=== PATIENT | male | born 1945 | race Caucasian/White ===

== ENCOUNTER 2021-05-12 15:58 | Emergency (ER) | payer OTHER ==
[~2021-05-12] VITALS: Ht 175.3 cm; Wt 104.3 kg
[2021-05-12] MEDS ORDERED: OXYC5 PO (16:56)
== END 2021-05-12 17:36 | disposition home or self-care (01) ==
LOC: ER 15:58
DX: S46.912A Strain of unspecified muscle, fascia and tendon at shoulder and upper arm level, left arm, initial encounter (principal); S46.911A Strain of unspecified muscle, fascia and tendon at shoulder and upper arm level, right arm, initial encounter; V49.9XXA Car occupant (driver) (passenger) injured in unspecified traffic accident, initial encounter
CPT/HCPCS: 99283; A9270

== ENCOUNTER 2022-11-29 18:31 | Inpatient (IN) | payer OTHER ==
[~2022-11-29] VITALS: Ht 177.8 cm; Wt 90.5 kg
[~2022-11-29 18:31] MED LIST: OXYC5 PO
--- NOTE | 2022-11-29 19:55 | NUR ---
ADMIT RECEIVED FROM [facility] [facility] AT THIS TIME. PT IS AWAKE AND ALERT. ORIENTED AND COOPERATIVE WITH CARE. IRRITABLE AT TIMES. DENIED C/O CHEST PAIN AT THIS TIME. CONTINUES WITH C/O BACK PAIN FROM RECENT SURGERY. DYSPNEA NOTED WITH EXERTION, INCLUDING WITH TALKING. O2 4L NC ON- SATS STABLE. RESPIRATIONS EVEN AND UNLABORED AT REST. PT IS ABLE TO REPOSITION SELF IN BED. HEPARIN INFUSING AT 18UNITS/KG/HR (28.8MLs/HR) WITH A DOSING WEIGHT OF 80KG. SEE ADMIT ASSESSMENT FOR FULL ASSESSMENT.
[2022-11-29 20:07] VITALS: BP 146/120
[2022-11-29 20:15] VITALS: BP 138/98
[2022-11-29 22:00] VITALS: BP 144/77
[2022-11-29 22:32] LABS: BASOPHILS ABSOLUTE AUTO 0.05 K/mm3 (0.00-0.23); BASOPHILS PERCENT AUTO 1 % (0-2); EOSINOPHILS PERCENT AUTO 3 % (0-6); Hematocrit 36.7 % (37.0-53.0); Hemoglobin 12.7 g/dL (13.5-17.5); IMMATURE GRAN ABSOLUTE AUTO 0.07 K/mm3 (0.00-0.10); IMMATURE GRAN PERCENT AUTO 1 % (0-1); LYMPHOCYTES ABSOLUTE AUTO 1.26 K/mm3 (0.84-5.20); LYMPHOCYTES PERCENT AUTO 13 % (21-46); MONOCYTES ABSOLUTE AUTO 0.89 K/mm3 (0.16-1.47); MONOCYTES PERCENT AUTO 9 % (4-13); Mean Corpuscular HGB 32.5 pg (26.0-34.0); Mean Corpuscular HGB Conc 34.6 g/dL (31.5-36.5); Mean Corpuscular Volume 94 fL (80-100); Mean Platelet Volume 11.2 fL (9.1-12.4); NEUTROPHILS ABSOLUTE AUTO 7.07 K/mm3 (1.96-9.15); NEUTROPHILS PERCENT AUTO 73 % (41-73); Platelet Count 176 K/mm3 (150-400); RDW Coefficient Variation 13.1 % (11.7-14.2); RDW Standard Deviation 42.9 fL (35.1-46.3); Red Blood Cell Count 3.91 M/mm3 (4.30-5.90); White Blood Cell Count 9.64 K/mm3 (4.00-11.30)
[2022-11-29 22:44] LABS: Albumin, Blood 2.9 g/dL (3.4-5.0); Albumin/Globulin Ratio 0.8 (0.8-1.8); Bilirubin, Total 0.4 mg/dL (0.1-1.0); Bun/Creatinine Ratio 14.5 (12.0-20.0); Calcium, Blood 8.6 mg/dL (8.5-10.1); Creatinine, Blood 1.45 mg/dL (0.60-1.20); Globulin, Blood 3.8 g/dL (2.2-4.0); Potassium, Blood 3.7 mmol/L (3.5-5.5); Total Protein, Blood 6.7 g/dL (6.4-8.2)
[2022-11-29 22:49] LABS: Anti-Xa UFH, PHA Monitoring 0.56 IU/mL; International Normalized Ratio 1.1; Prothrombin Time Results 11.5 Sec (9.7-11.5)
[2022-11-29 23:00] VITALS: BP 142/89
[2022-11-29] MEDS ORDERED: ALLO100 PO (23:31)
[2022-11-29] MEDS ORDERED: ELIQUIS5 M2 PO (23:32)
[2022-11-29] MEDS ORDERED: LOW DOSE ASPIRI81 M1 PO (23:33)
[2022-11-29] MEDS ORDERED: CARV6.25 PO (23:33)
[2022-11-29] MEDS ORDERED: ATOR40TA PO (23:33)
[2022-11-29] MEDS ORDERED: VITAMIN D31000 UNI1 PO (23:34)
[2022-11-29] MEDS ORDERED: DULO30 PO (23:35)
[2022-11-29] MEDS ORDERED: DOCU100 PO (23:35)
[2022-11-29] MEDS ORDERED: JARDIANCE10 MG PO (23:36)
[2022-11-29] MEDS ORDERED: DULO60 (23:36)
[2022-11-29] MEDS ORDERED: FINA5 PO (23:37)
[2022-11-29] MEDS ORDERED: ERGO50000 PO (23:37)
[2022-11-29] MEDS ORDERED: BASAGLAR K100 UNIT/1 SC (23:38)
[2022-11-29] MEDS ORDERED: METF500 PO (23:39)
[2022-11-29] MEDS ORDERED: Lisinopril2.5 MG PO (23:39)
[2022-11-29] MEDS ORDERED: LEVSOD137 PO (23:39)
[2022-11-29] MEDS ORDERED: SOLI5 (23:40)
[2022-11-29] MEDS ORDERED: TAMS.4ER PO (23:40)
[2022-11-29] MEDS ORDERED: TRAM50 PO (23:41)
[2022-11-29] MEDS ORDERED: VENL75ER PO (23:41)
[2022-11-29] MEDS ORDERED: THERA-GESIC TD (23:43)
[2022-11-29] MEDS ORDERED: CALAMINE LOTIO177 ML TOP (23:44)
[2022-11-30] VITALS (20 sets, daily range): BP systolic 110–160; BP diastolic 61–105
[2022-11-30 05:05] LABS: BASOPHILS ABSOLUTE AUTO 0.05 K/mm3 (0.00-0.23); BASOPHILS PERCENT AUTO 1 % (0-2); EOSINOPHILS PERCENT AUTO 4 % (0-6); Hematocrit 35.3 % (37.0-53.0); Hemoglobin 11.8 g/dL (13.5-17.5); IMMATURE GRAN ABSOLUTE AUTO 0.07 K/mm3 (0.00-0.10); IMMATURE GRAN PERCENT AUTO 1 % (0-1); LYMPHOCYTES ABSOLUTE AUTO 1.36 K/mm3 (0.84-5.20); LYMPHOCYTES PERCENT AUTO 15 % (21-46); MONOCYTES ABSOLUTE AUTO 0.89 K/mm3 (0.16-1.47); MONOCYTES PERCENT AUTO 10 % (4-13); Mean Corpuscular HGB 30.6 pg (26.0-34.0); Mean Corpuscular HGB Conc 33.4 g/dL (31.5-36.5); Mean Corpuscular Volume 92 fL (80-100); Mean Platelet Volume 11.2 fL (9.1-12.4); NEUTROPHILS ABSOLUTE AUTO 6.35 K/mm3 (1.96-9.15); NEUTROPHILS PERCENT AUTO 70 % (41-73); Platelet Count 162 K/mm3 (150-400); RDW Coefficient Variation 13.1 % (11.7-14.2); RDW Standard Deviation 43.8 fL (35.1-46.3); Red Blood Cell Count 3.85 M/mm3 (4.30-5.90); White Blood Cell Count 9.12 K/mm3 (4.00-11.30)
[2022-11-30 05:19] LABS: Albumin, Blood 2.6 g/dL (3.4-5.0); Albumin/Globulin Ratio 0.7 (0.8-1.8); Bilirubin, Total 0.5 mg/dL (0.1-1.0); Calcium, Blood 8.4 mg/dL (8.5-10.1); Creatinine, Blood 1.6 mg/dL (0.60-1.20); Globulin, Blood 3.6 g/dL (2.2-4.0); Potassium, Blood 3.8 mmol/L (3.5-5.5); Total Protein, Blood 6.2 g/dL (6.4-8.2)
--- NOTE | 2022-11-30 06:23 | NUR ---
SHIFT SUMMARY NO ACUTE CHANGES DURING NOC. PT SLEPT INTERMITTENTLY. ORIENTED AND COOPERATIVE WITH CARE, ALTHOUGH HE IS OFTEN IRRITABLE. HEPARIN INFUSING PER PHARMACY AT 18UNITS/KG/HR (28.8MLS/HR) WITH DOSING WEIGHT OF 80KG. VSS. REMAINS ON 4LNC. CONTINUES WITH MILD DYSPNEA/SOB WITH EXERTION. RESPIRATIONS EVEN AND UNLABORED AT REST. REPOSITIONS SELF IN BED. MEDICATED WITH TYLENOL 650MG FOR C/O LEFT HIP/ABD/FLANK AND BACK PAIN. PT SLEPT AFTER MEDS GIVEN, BUT WHEN AWAKE THIS AM HE STATES THAT THE TYLENOL DID NOT HELP. DR. BAPTISTE NOTIFIED OF PT'S CONTINUED C/O PAIN- NEW ORDER RECEIVED TO INCREASE TYLENOL DOSE AT THIS TIME. TOLERATED DIET EARLIER, BUT HAS BEEN NPO SINCE MIDNIGHT PER ORDER. VOIDING SMALL AMOUNTS OF ORTIZ URINE. WILL REPORT TO ONCOMING RN WHEN AVAILABLE.
--- NOTE | 2022-11-30 17:52 | NUR ---
ASSUMED CARE OF PT AT 0700 THIS AM. PT REPORTS 10/10 PAIN THIS AM TO HIS BACK AND LEFT LEG. DR WATKINS NOTIFIED AND NEW ORDERS RECEIVED WITH GOOD EFFECT. PO PAIN MEDICATION ALSO ADDED LATER IN THE AM WHEN DR WATKINS ROUNDED, PT'S PAIN MUCH BETTER CONTROLLED AND HE WAS ABLE TO REST AND SLEEP. APROX 1520 PT C/O INCREASING LEFT LOWER LEG PAIN WITH NUMBNESS TRAVELING UP HIS LEG AND INTO HIS ABD. DR WATKINS AND DR ALCALA NOTIFIED. PT HAS ALSO REQUIRED MORE 02 T/O THE DAY AND IS EXTREMELY SHORT OF BREATH WITH ANY MOVEMENT. O2 NEEDS INCREASED FROM 4L NC TO 6L NC. 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 1740- PT TO DRUM SAW OPERATOR FOR THROBECTOMY PROCEDURE. HEPARIN DISCONECTED BY DRUM SAW OPERATOR STAFF AT THIS TIME.
--- NOTE | 2022-11-30 20:38 | NUR ---
PATIENT TO ICU 3 FROM [facility] TECHNICIAN AT 1950. SPOKE TO DR. ALCALA, ORDERS TO RESTART HEPARIN IN 2 HOURS PER PHARMACY. PHARMACY NOTIFIED BY THIS RN. PATIENT IS ALERT AND ORIENTED X4. DENIES PAIN AT THIS TIME. 02 SATS 98% ON 3L VIA NC, LS COARSE/DIM. HR SR WITH BBB AND PVCs, RATE 70s, BP STABLE. DENIES CP/PRESSURE. RIGHT GROIN CLOSURE DEVICE IN PLACE, PER CARI IT WILL BE REMOVED IN THE AM. CHG DRESSING C/D/I AND NO HEMATOMA AT THIS TIME. DENIES PAIN WHEN PALPATING AROUND SITE. PATIENT USED URINAL. CALL LIGHT IN REACH.
--- NOTE | 2022-11-30 20:49 | NUR ---
UPDATED ON PATIENT CONDITION
[2022-12-01] VITALS (38 sets, daily range): BP systolic 109–163; BP diastolic 51–92
[2022-12-01 05:46] LABS: BASOPHILS ABSOLUTE AUTO 0.05 K/mm3 (0.00-0.23); BASOPHILS PERCENT AUTO 1 % (0-2); EOSINOPHILS ABSOLUTE AUTO 0.38 K/mm3 (0.00-0.68); EOSINOPHILS PERCENT AUTO 4 % (0-6); Hematocrit 33.8 % (37.0-53.0); Hemoglobin 11.1 g/dL (13.5-17.5); IMMATURE GRAN ABSOLUTE AUTO 0.05 K/mm3 (0.00-0.10); IMMATURE GRAN PERCENT AUTO 1 % (0-1); LYMPHOCYTES ABSOLUTE AUTO 0.91 K/mm3 (0.84-5.20); LYMPHOCYTES PERCENT AUTO 9 % (21-46); MONOCYTES ABSOLUTE AUTO 1.23 K/mm3 (0.16-1.47); MONOCYTES PERCENT AUTO 12 % (4-13); Mean Corpuscular HGB 30.5 pg (26.0-34.0); Mean Corpuscular HGB Conc 32.8 g/dL (31.5-36.5); Mean Corpuscular Volume 93 fL (80-100); Mean Platelet Volume 11.2 fL (9.1-12.4); NEUTROPHILS ABSOLUTE AUTO 7.96 K/mm3 (1.96-9.15); NEUTROPHILS PERCENT AUTO 75 % (41-73); Platelet Count 149 K/mm3 (150-400); RDW Coefficient Variation 13.1 % (11.7-14.2); RDW Standard Deviation 44.5 fL (35.1-46.3); Red Blood Cell Count 3.64 M/mm3 (4.30-5.90); White Blood Cell Count 10.58 K/mm3 (4.00-11.30)
[2022-12-01 06:07] LABS: Albumin, Blood 2.4 g/dL (3.4-5.0); Anion Gap 4 mmol/L (6-16); Blood Urea Nitrogen 22 mg/dL (8-24); Bun/Creatinine Ratio 15.5 (12.0-20.0); CO2, Blood 22 mmol/L (21-32); Calcium, Blood 8.1 mg/dL (8.5-10.1); Chloride, Blood 112 mmol/L (98-108); Creatinine, Blood 1.42 mg/dL (0.60-1.20); Glomerular Filtration Rate 50 (60-); Glucose, Blood 130 mg/dL (70-99); Magnesium, Blood 1.8 mg/dL (1.6-2.4); Phosphorus, Blood 3.4 mg/dL (2.5-4.9); Potassium, Blood 3.9 mmol/L (3.5-5.5); Sodium, Blood 138 mmol/L (136-145)
--- NOTE | 2022-12-01 06:15 | NUR ---
SHIFT SUMMARY PATIENT IS ALERT AND ORIENTED X4. MEDICATED FOR PAIN PRN. 02 SATS 93% ON RA, SOB WITH EXERTION. HR SR WITH BBB AND PVCs 70s. BP STABLE. PATIENT DENIES CP/PRESSURE. RIGHT GROIN SITE WITH CLOSURE DEVICE WNL, NO HEMATOMA. DRESSING C/D/I. PATIENT USES URINAL. REFUSING TURNING MOST THE NIGHT, ABLE TO SHIFT HIS OWN HIPS. CALL LIGHT IN REACH
--- NOTE | 2022-12-01 15:23 | NUR ---
AT 1430 REGIONAL SALES REPRESENTATIVE CAME TO REMOVE PURSE STRING CLOSURE DEVICE. CLEAR OCCLUSIVE DRESSING PLACED AND NO SIGN OF HEMATOMA OR BLEEDING. MONITORING CLOSELY PT IS STILL ON HEPARIN GTT.
--- NOTE | 2022-12-01 16:09 | NUR ---
Pt. is in bed resting but responds when I enter the room. Pt. is somnilent so this vat house laborer limited this first visit. Rapport is established, and Pt. displays evidence of being engaged and aware of his progress. Pt. verbalizedgratitude for the spiritual care visit and invited this vat house laborer to return tomorrow.
--- NOTE | 2022-12-01 18:08 | NUR ---
SUMMARY PT A/O X4. DENIES CP OR PRESSURE. HAS SOME BACK PAIN THAT IS RELIEVED WITH REPOSITIONING. HAD PURSE STRING CLOSURE DEVICE TO R GROIN THAT WAS REMOVED BY LIVESTOCK BUYER THIS AFTERNOON. CLEAR OCCLUSIVE DRESSING TO SITE. NO SIGN OF HEMATOMA OR BLEEDING. PT HAD A COUPLE EPISODES OF N/V TODAY MEDICATED WITH ZOFRAN THEN PT ABLE TO EAT MEALS. HEPARIN GTT PER PHARMACY. PT USES CALL LIGHT APPROPRIATELY.
--- NOTE | 2022-12-01 20:00 | NUR ---
ASSUMED CARE OF PT AT 1915. REPORT RECEIVED AT BEDSIDE. PT PRESENTS IN BED. ALERT AND ORIENTED. PLEASANT AND COOPERATIVE WITH CARE AND ASSESSMENT. DOES HAVE SOMEWHAT FLAT AFFECT. CONTINUES ON HEPARIN DRIP WHICH RATE VERIFIED. NO S/S BLEEDING TO NOTE. PT ON 2 L/M O2 MAINTAINING SATURATIONS > 90 PERCENT. WILL ATTEMPT TO TITRATE O2 LOWER IF ABLE. DOES HAVE VERTIGO AND MILD NAUSEA WITH TURNS IN BED. WILL REVIEW CHART AND PLAN OF CARE FOR THIS PT.
[2022-12-02] VITALS (14 sets, daily range): BP systolic 119–143; BP diastolic 43–122
--- NOTE | 2022-12-02 03:11 | NUR ---
PT HAS REQUIRED O2 AT 2 L/M WHILE SLEEPING SECONDARY TO DESATURATIONS. PT HAS BEEN COMPLAINING OF HIS BACK HAVING PAIN 03/30. PT STATES THIS IS FROM WHERE BIOPSY HAD BEEN DONE RECENTLY. DID MEDICATE PT WITH FENTANYL, AND WITH NORCO. PT STATES THAT THIS HAS HELPED SOME. WITH Q 2 HOUR TURNS, PT STATES HE FEELS DIZZY AND NAUSEAS. HAVE MEDICATD PT WITH ZOFRAN ONCE FOR NAUSEA. GROIN SITE RIGHT HAS NO HEMATOMA OR OOZING. AREA HAS BEEN MAPPED. WILL CONTINUE TO MONITOR PT.
--- NOTE | 2022-12-02 04:42 | NUR ---
CALL MADE TO DR NICOLE CONCERNING PT HAVING ISSUES WITH VERTIGO WITH ANY TURNS IN BED. THIS BEING ACCOMPANYIED BY NAUSEA. ORDER RECEIVED FOR MECLIZINE PRN. PT CURRENTLY ASLEEP. WILL ADMINISTER THIS MED IF NEED ARISES. PT HAS MEPILEX FOAM DRESSINGS TO SACRAL AREA, AND ONE TO MID BACK BIOPSY SITE. BOTH CDI. WILL CONTINUE TO MONITOR PT, AND WILL REPORT OFF TO ONCOMING RN.
[2022-12-02 06:42] LABS: Hematocrit 32.2 % (37.0-53.0); Hemoglobin 10.6 g/dL (13.5-17.5)
--- NOTE | 2022-12-02 06:44 | NUR ---
WITH TURN, AFTER PT RECEIVED MECLIZINE, NO COMPLAINTS OF NAUSEA OR VERTIGO.
[2022-12-02 07:08] LABS: Albumin, Blood 2.4 g/dL (3.4-5.0); Anion Gap 1 mmol/L (6-16); Blood Urea Nitrogen 25 mg/dL (8-24); Bun/Creatinine Ratio 15.5 (12.0-20.0); CO2, Blood 26 mmol/L (21-32); Calcium, Blood 8.2 mg/dL (8.5-10.1); Chloride, Blood 108 mmol/L (98-108); Creatinine, Blood 1.61 mg/dL (0.60-1.20); Glomerular Filtration Rate 43 (60-); Glucose, Blood 165 mg/dL (70-99); Phosphorus, Blood 3.6 mg/dL (2.5-4.9); Potassium, Blood 4.2 mmol/L (3.5-5.5); Sodium, Blood 135 mmol/L (136-145)
[2022-12-02 12:28] LABS: pH Blood Arterial 7.42 (7.35-7.45)
--- NOTE | 2022-12-02 13:05 | NUR ---
Pt. is awake in bed and welcomes my visit. Pt. is unsettled about the length of his hospitalization. Pt. verbalizes his frustrations. Listen with empathy and a calming presence. Pt. verbalizes that it is difficult for his spouse to visit, so she likely will not visit until he is discharges. Pt. displays some level of trust and verbalized gratitude for the spiritual care visit.
--- NOTE | 2022-12-02 14:38 | NUR ---
Assumed care of pt at 0700. Report received from Fernandez KELLY. Noted that patient has required oxygen every night. Pt weaned to room air while awake, but requires O2 as soon as he falls asleep. Plan to keep pt on oxygen. Pt is A&O x 4. Pleasant and cooperative with care. States that he is experiencing dizziness with repositioning. Struggled to dangle with PT/OT today. Dr Vital notified. No plans for pt to DC home today due to this. Dr Vital asked this RN to give meclazine and then measure orthostatics. Med given. Supine BP 131/77, HR 60. Sitting BP 123/71, HR 62. Pt unable to tolerate standing. Pt reports rib pain but then points to his LUQ/LLQ. Noted last BM was 11/28. When asked, pt states he typically has one bowel movement every 2-3 weeks. Pt states this has been the case "since my colonoscopy last year". Updated Dr Vital.
--- NOTE | 2022-12-02 18:23 | NUR ---
SUMMARY Pt transferred to PCU 20 at 1800. Transferred by bed and slider sheet, accompanied by this RN. Assessment at time of transfer is as follows: Neuro: A&O x 4. Answers questions, follows commands, verbalizes needs. Pleasant and cooperative with care. Experiences dizziness with in-bed and out of bed activity. Meclizine provided minimal relief. Musc: Mobility limited by dizziness. Able to preform in-bed ADLs independently. Needs encouragement to reposition left/right. Working with PT/OT Resp: SpO2 90% or greater 2 LPM NC. Pt mostly requires O2 while he is sleeping. Considering ABG results, Dr Vital wants pt on O2 continuously. [facility] delivered O2 tank for patient for his transport home. Pt to call and set up home delivery. Nurse notify placed. Card: SB to SR per monitor. PVCs. color, sensation, pulses, capillary refill equal BUE. Small hematoma to R groin femoral venous access. Unchanged from bedside report assessment with noc RN. GI: Plan to start bowel care. Last BM 11/28. Pt reports tenderness to LUQ and LLQ. : Voids into urinal independently. Skin: Dressing to biopsy site and sacrum changed during care handoff to DREDGE HAND. Psych: Pt in much better spirits this afternoon. This RN provided telephone updates to pt's spouse this morning and this evening- to notify of transfer.
--- NOTE | 2022-12-02 18:44 | NUR ---
TRANSFER TO PCU/SHIFT SUMMARY: PATIENT ARRIVAL TO PCU 20, USED SLIDE SHEET TO TRANSFER. PATIETN PAINFUL UPON MOVING OVER AND COMPLAINS OF LLQ PAIN THAT HAS BEEN SHARP AND ONGOING FOR 2 WEEKS. DENIES NUMBNESS/TINGLING. PERRLA. [place], ABLE TO MAKE NEEDS KNOWN. CALL IN REACH. ON 2L SATING ABOVE 95%. [facility] BROUGHT OVER TO PCU FOR PATIENT TO TAKE HOME. DENIES SOB. NO COUGH NOTED. TELE SHOWING SR WITH PVC'S. DENIES CHEST PAIN/PRESSURE. BP STABLE. NO SIGNS OF EDEMA. HEPARIN INFUSING PER EMAR. LLQ TENDERNESS. PATIENT STATES HE HAS NOT HAD A BOWEL MOVEMENT FOR 1-2 WEEKS WHICH IS NORMAL FOR HIM SINCE HIS COLONOSCOPY. BOWEL CARE MEDS ON BOARD. USING URINAL TO VOID OTHERWISE. EATING AND DRINKING WNL. PATIENT REPORTS DIZZINESS/VERTIGO WHEN STANDING, BUT STATES IT DIMINISHES UPON SITTING BACK DOWN. DENIES DIZZINESS WHEN LAYING IN BED. THIS RN DID NOT ATTEMPT TO STAND. VITALS STABLE UPON TRANSFER. NS INFUSING PER EMAR X1 BAG.
[2022-12-03 03:20] LABS: Hematocrit 31.1 % (37.0-53.0); Hemoglobin 10.1 g/dL (13.5-17.5)
[2022-12-03 03:47] LABS: Albumin, Blood 2.3 g/dL (3.4-5.0); Anion Gap 2 mmol/L (6-16); Blood Urea Nitrogen 27 mg/dL (8-24); Bun/Creatinine Ratio 16.7 (12.0-20.0); CO2, Blood 26 mmol/L (21-32); Calcium, Blood 8.1 mg/dL (8.5-10.1); Chloride, Blood 109 mmol/L (98-108); Creatinine, Blood 1.62 mg/dL (0.60-1.20); Glomerular Filtration Rate 43 (60-); Glucose, Blood 128 mg/dL (70-99); Phosphorus, Blood 3.8 mg/dL (2.5-4.9); Sodium, Blood 137 mmol/L (136-145)
[2022-12-03 05:11] VITALS: BP 135/80
--- NOTE | 2022-12-03 05:12 | NUR ---
Assumed care of pt at 1900, A/Ox4 and cooperative with care, calls appropriately. Patient c/o pain mainly in L mid quadrant, but also chronic back pain. Reposition Q2 and medicated per emar with good relief. Maintains over 92% on RA while awake, however uses 2L NC while asleep. Sleep study performed this shift. LS clear in upper lobes, dim at bases. TOVAR and occasional nonproductive cough. SR w/frequent PAC/PVC and runs of Bigem. Denies CP/pressure, VSS. Patient has hypoactive bowel tones x4, bowel care started this shift. Chronic pressure wound on coccyx, mid back open area from recent skin biopsy, and R groin site that is C/D/I with hematoma that is unchanged on this shift. Heparin gtt running per emar.
[2022-12-03 07:34] VITALS: BP 135/84
[2022-12-03 11:13] VITALS: BP 116/59
--- NOTE | 2022-12-03 11:58 | NUR ---
PATIENT ALERT AND ORIENTED. [place]. FLAT AFFECT. DENIES NUMBNESS AND TINGLING. STATES HE GETS DIZZY WITH ANY MOVMENT IN BED. REPORTED 5-6/10 PAIN LAYING IN BED AND UP TO 10/10 PAIN WITH MOVING. LLQ PAIN WITH DEEP PALPATION. 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 ROLLING IN BED AND FOR Q2 TURNS. PHYSICAL THERAPY IN ROOM AT THIS TIME TO WORK ON SITTING OF EDGE OF BED OR STANDING. ON 2L NASAL CANNULA SATING MID 90'S. LUNGS CLEAR AND DIM IN BASES. TELE SHOWING SR WITH BIGEM PVC'S, HR 60-70'S. DENIES CHEST PAIN/PRESSURE/PALPITATIONS. BP STABLE. NO SIGNS OF EDEMA. BRIDGED FROM HEPARIN TO ELIQUIS. LLQ PAIN, BOWEL CARE MEDS GIVEN THIS AM. DR. FARAH AWARE OF LLQ PAIN. EATING AND DRINKING WNL. USING URINAL TO VOID. BIOPSY SITE CLEANED AND REDRESSED WELL COCCYX MEPILEX CHANGED. LEFT ELBOW SCAB, WITH SLIGHT BLEEDING, CLEANED AND DRESSED. RIGHT GROIN SITE REMAINS UNCHANGED FROM PREVIOUS DAY SHIFT ASSESSMENT. RESIDUAL HEMATOMA MARKED, NO NEW SIGNS OF BLEEDING. TENDER TO TOUCH. CHG TEGADERM REMAINS IN PLACE. DWIGHT UPDATED ON PHONE THIS AM.
--- NOTE | 2022-12-03 13:02 | NUR ---
PATIENT NOON VITALS STABLE. UP TO EDGE OF BED WITH PT AND SITTING FOR 5 MIN. LAYING BACK IN BED AT THIS TIME. DR. FARAH IN TO ASSESS RIGHT GROIN SITE. NO NEW ORDERS FOR THIS RN.
[2022-12-03 15:41] VITALS: BP 130/67
--- NOTE | 2022-12-03 18:47 | NUR ---
SHIFT SUMMARY: VITAL SIGNS REMAIN STABLE. UP TO EDGE OF BED FOR 5 MIN SITTING, ABLE TO STAND FOR 30 SECONDS. PATIENT COMPLAINS OF DIZZINESS UPON SITTING AT EDGE OF BED AND STANDING. HR REMAINS WITHIN 80'S WITH ACTIVITY. MID BACK BIOPSY SITE WOUND DRESSING CHANGED THIS EVENING, NEW PHOTO IN CHART TO COMPARE TO SITE UPON ADMIT. SITE LARGER AND OOZING BLOOD, ABLE TO SEE POCKET WITHIN WOUND. PATIENT WOULD BENEFIT FROM WOUND CONSULT. SKIN SURROUNDING SITE REMAINS PURPLE/RED IN COLOR WHICH IS SIMILAR TO PICTURE ON ADMIT. CLEANSED WITH WOUND AIR INTELLIGENCE OFFICER, XEROFORM AND MEPILEX APPLIED. REMAINS ON 2L NASAL CANNULA. NO TELE EVENTS. REAMINS SR WITH PAC'S AND PVC'S WITH RUNS OF BIGEM. PATIENT ABLE TO SPEAK WITH ON PHONE THIS AFTERNOON.
[2022-12-03 19:40] VITALS: BP 143/78
[2022-12-04 00:55] VITALS: BP 149/82
[2022-12-04 03:41] LABS: Hematocrit 32.2 % (37.0-53.0); Hemoglobin 10.6 g/dL (13.5-17.5)
[2022-12-04 03:57] LABS: Albumin, Blood 2.4 g/dL (3.4-5.0); Anion Gap 1 mmol/L (6-16); Blood Urea Nitrogen 23 mg/dL (8-24); CO2, Blood 26 mmol/L (21-32); Calcium, Blood 8.3 mg/dL (8.5-10.1); Chloride, Blood 111 mmol/L (98-108); Creatinine, Blood 1.44 mg/dL (0.60-1.20); Glomerular Filtration Rate 49 (60-); Glucose, Blood 185 mg/dL (70-99); Phosphorus, Blood 3.5 mg/dL (2.5-4.9); Sodium, Blood 138 mmol/L (136-145)
[2022-12-04 04:07] VITALS: BP 134/73
--- NOTE | 2022-12-04 05:13 | NUR ---
Pt slept for most of the night. When he did wake up, he continued to c/o LLQ and back pain. Maintains over 95% on RA while awake, however required 2L NC while asleep due to MAHENDRA and still desats into the 60's. TOVAR. SR with bigem and trigem in to 70's. Denies any CP/pressure, VSS. Severe abdominal distention that is tender to touch and hypoactive bowel tones x4. More bowel care was given this shift with no resulting BM. Incontinent of urine, yellow in color. Attends in place. Scrotal reddening and tenderness noted, cleaned, powder applied and male wicking wrap added. Chronic stage 2 on coccyx, dressing changed, Q2. Mid/low back open wound from recent skin biopsy site, cleaned with wound freight car cleaner delta system and redressed. Will report to evy KELLY.
[2022-12-04 10:33] VITALS: BP 147/89
--- NOTE | 2022-12-04 11:23 | NUR ---
TRANSFER FROM PCU PT RECIEVED FROM PCU. IN BED. PT STATES THAT HE IS HURTING ALL OVER. PT STATED THAT HE USES A CANE AT HOME BUT HAS NOT WALKED SINCE HE ARRIVED. PT IS ALERT BUT NOT ANSWERING MANY QUESTIONS.
[2022-12-04 15:50] VITALS: BP 152/61
--- NOTE | 2022-12-04 19:04 | NUR ---
SHIFT SUMMARY PT IS ALERT AND ORIENTED X4. HE SEEMS TO HAVE MOMENTS OF CONFUSION. IT IS HARD TO ASSESS PT IS QUIET AND DOES NOT LIKE TO CONVERSATE. PT DOES REPORT PAIN IN HIS BACK AND COCCYX WITH MOST PAIN LOCATED IN LLQ OF ABDOMEN. PT REPORTS NO BM IN 3 WEEKS BUT THAT IS USUAL FOR HIM. CALLED FOR UPDATES. SHE EXPRESSED CONCERNS THAT IT MAY NOT BE SAFE FOR HIM TO COME HOME WITH OUT HELP. SHE WOULD LIKE TO TALK WITH CONVERTIBLE TOP INSTALLER ABOUT POSSIBLE OPTIONS OF HOME HEALTH OR FACILITY. GENERAL SURGEON CONSULT TODAY. PLS SEE NOTES. TREATED PAIN PER EMAR. Q2 TURNS.
[2022-12-04 20:11] VITALS: BP 138/64
[2022-12-05 03:42] VITALS: BP 145/98
--- NOTE | 2022-12-05 06:22 | NUR ---
FENTANYL EFFECTIVE FOR PAIN CONTROL, REPORTS HIGH PAIN IN LLQ. PT REPORTS NO BM FOR 2-3 WEEKS BUT LAST BM CHARTED 11/28, 1 WEEK AGO. LAXATIVES/STOOL SOFTENER GIVEN ORDERED. CPAP IN USE AT NIGHT. HR DIPS INTO 40 INTERMITTENTLY, OTHERWISE VSS. PAINFUL BUT COOPERATIVE WITH CARES.
[2022-12-05 07:16] VITALS: BP 144/68
[2022-12-05 15:37] VITALS: BP 152/82
--- NOTE | 2022-12-05 18:33 | NUR ---
SHIFT SUMMARY- PT IS A/O, PLESANT AND COOPERATIVE. HE WORKED WITH PT AND OT. TOLORATED WELL. SAT AT THE EDGE OF THE BED FOR MEALS. MEDICATED FOR PAIN. HIS BED IS IN THE LOW POSTIONS CALL LIGHT IS WITIN REACH
[2022-12-05 19:58] VITALS: BP 146/82
[2022-12-06 04:26] VITALS: BP 158/95
--- NOTE | 2022-12-06 05:29 | NUR ---
SHIFT SUMMARY PATIENT ALERT AND ORIENTED X4. MEDICATED PER EMAR FOR LLQ PAIN. DRESSINGS CLEAN, DRY, AND INTACT ON WOUNDS. PATIENT ON ROOM AIR OVERNIGHT, DESATED TO HIGH 80'S A COUPLE TIMES WHILE SLEEPING BUT QUICKLY RECOVERED. NO ACUTE ISSUES NOTED. CALL LIGHT WITHIN REACH.
[2022-12-06 07:35] VITALS: BP 147/87
[2022-12-06 15:20] VITALS: BP 160/86
--- NOTE | 2022-12-06 16:31 | NUR ---
Spiritual Care Attempted. Pt. is in bed and is somnilent, but was roused enough to communicate a request to have this supervisor sign shop return in the morning. Pt. verbalized gratitude for the spiritual care visit.
--- NOTE | 2022-12-06 17:37 | NUR ---
MAKES NEEDS KNOWN, SPEECH SOFT AND SLOW, CALL LIGHT WITH IN REACH. NO BM SINCE 11/29, REPORTED TO DR FARAH, PATIENT MEDICATED WITH COLACE, SENNA, MIRALAX AND SUPP. MOM GIVEN AND THEN POSSIBLE ENEMA TOMORROW IF NO RESOLVE, MEDICATED WITH NORCO X2, LLQ PAIN, BIOPSY DRESSING CHANGED. ANAID BROWNING, GOOD APPETITE, WILL RELAY TO PM RN
[2022-12-06 20:37] VITALS: BP 142/82
[2022-12-07 03:13] VITALS: BP 135/75
--- NOTE | 2022-12-07 05:44 | NUR ---
Summary: Patient in a lot of pain overnight. Pain makes it difficult for patient to assist staff with his mobility. Medicated per EMAR for pain. Patient had a incontinent BM overnight. Patietn has large hematoma under cath site to right groin. Dressing changed to site as there was drainage. Patient pleasant with staff allows care. VSS. Monitored on cont pulse ox. bed alarm on.
[2022-12-07 07:42] VITALS: BP 124/89
[2022-12-07 09:26] LABS: SARS-Cov-2 (COVID-19) PCR, MMC Negative (NEGATIVE)
[2022-12-07] MEDS ORDERED: INSULIN GL100 UNIT/4 SC (11:04)
[2022-12-07] MEDS ORDERED: BISA10S PR (11:07)
[2022-12-07] MEDS ORDERED: DULCOLAX400 MG/5 M PO (11:08)
[2022-12-07] MEDS ORDERED: SENN187 PO (11:09)
[2022-12-07] MEDS ORDERED: MELATONIN 5 MG1 EACH PO (11:09)
[2022-12-07] MEDS ORDERED: MIRALAX17 GM PO (11:09)
--- NOTE | 2022-12-07 14:23 | NUR ---
Patient stable & ready for discharge. COVID test negative. Plan to DC to [facility] today. Called & gave report to RN at SNF. Patient left unit at 1415.
== END 2022-12-07 14:16 | DRG 163 ==
LOC: ICUE 18:31 → PCU 20:01 → MEDS 20:01 → ICUE 20:01 → PCU 23:00 → ICUE 11-30 19:35 → PCU 12-02 18:00 → MEDS 12-04 10:27
PROVIDERS: Family Medicine; Internal Medicine; ADMIT Internal Medicine
PROC: 4A033R1 Measurement of Arterial Saturation, Peripheral, Percutaneous Approach (ICD-10-PCS; principal; 2022-11-29)
PROC: 02CQ3ZZ Extirpation of Matter from Right Pulmonary Artery, Percutaneous Approach (ICD-10-PCS; 2022-12-06)
PROC: 02CR3ZZ Extirpation of Matter from Left Pulmonary Artery, Percutaneous Approach (ICD-10-PCS; 2022-12-06)
DX: I26.99 Other pulmonary embolism without acute cor pulmonale (principal); J96.01 Acute respiratory failure with hypoxia; I82.402 Acute embolism and thrombosis of unspecified deep veins of left lower extremity; G45.0 Vertebro-basilar artery syndrome; L89.152 Pressure ulcer of sacral region, stage 2; D64.9 Anemia, unspecified; E88.09 Other disorders of plasma-protein metabolism, not elsewhere classified; K59.00 Constipation, unspecified; Z20.822 Contact with and (suspected) exposure to COVID-19; I27.20 Pulmonary hypertension, unspecified; I48.91 Unspecified atrial fibrillation; I25.10 Atherosclerotic heart disease of native coronary artery without angina pectoris; N18.30 Chronic kidney disease, stage 3 unspecified; E11.22 Type 2 diabetes mellitus with diabetic chronic kidney disease; N40.0 Benign prostatic hyperplasia without lower urinary tract symptoms; E03.9 Hypothyroidism, unspecified; M10.9 Gout, unspecified; G47.33 Obstructive sleep apnea (adult) (pediatric); Z96.651 Presence of right artificial knee joint; Z99.89 Dependence on other enabling machines and devices; Z91.148 Patient's other noncompliance with medication regimen for other reason; Z95.5 Presence of coronary angioplasty implant and graft; Z98.890 Other specified postprocedural states; Z79.4 Long term (current) use of insulin; Z79.01 Long term (current) use of anticoagulants; Z79.82 Long term (current) use of aspirin; Z79.890 Hormone replacement therapy; Z79.899 Other long term (current) drug therapy
CPT/HCPCS: 36415; 36600; 37184; 37185; 70496; 70498; 74176; 75743; 75822; 75825; 76937; 80053; 80069; 82803; 82947; 83735; 84484; 85014; 85018; 85025; 85347; 85520; 85610; 85730; 93970; 94660; 94762; 97110; 97162; 97166; 97530; 97535; 99152; 99153; A9270; C1751; C1757; C1769; C1894; C8929; J1644; J1815; J2250; J2405; J3010; J7030; J7040; J7050; Q9957; Q9967; U0004